=== PATIENT | female | born 1970 | race Caucasian/White ===

== ENCOUNTER 2021-06-23 08:14 | Emergency (ER) | payer BC ==
[~2021-06-23] VITALS: Ht 167.6 cm; Wt 76.0 kg
[~2021-06-23 08:14] MED LIST: AMOXICILLIN500 MG PO; CYCLOBENZAPR10 MG PO; NAPROSYN500 MG PO; ULTRAM50 MG PO
[2021-06-23 08:41] LABS: HEMATOCRIT 41.4 % (37.0-47.0); HEMOGLOBIN 13.1 g/dl (12.0-16.0); IMMATURE GRANULOCYTES 0.1 % (0.0-5.0); MEAN CELL VOLUME 87.7 fL CALC (80.0-100.0); MEAN CORPUSCULAR HGB 27.8 pG CALC (26.0-32.0); MEAN CORPUSCULAR HGB CONC 31.6 g/dL CAL (32.0-36.0); NEUT# 6.09 thou/uL (2.00-7.15); RED BLOOD COUNT 4.72 mill/uL (4.20-5.60)
[2021-06-23 09:07] LABS: ANION GAP 17 (6-22 (CALC)); BUN 19 mg/dL (7-17); BUN/CREATININE RATIO 26 (12-20 (CALC)); CHLORIDE 108 mmol/l (95-108); CREATININE 0.8 mg/dL (0.5-1.0); GFR > 60 ML/MIN (>=60 (CALC)); GFR FOR AFR.AMER. > 60 ML/MIN (>=60 (CALC)); POTASSIUM 4.2 mmol/l (3.5-5.1); SODIUM 139 mmol/l (137-146)
[2021-06-23 09:08] LABS: CARBON DIOXIDE 18 mmol/l (22-30)
[2021-06-23 10:00] VITALS: BP 119/79
[2021-06-23 10:01] VITALS: BP 119/79
[2021-06-23] MEDS ORDERED: TRAMADOL HYDROC50 M1 PO (10:14)
== END 2021-06-23 10:19 | disposition home or self-care (01) | DRG 313 ==
LOC: ED 08:14
PROVIDERS: Family Medicine
DX: R07.89 Other chest pain (principal); U07.1 COVID-19; K21.9 Gastro-esophageal reflux disease without esophagitis; Z86.718 Personal history of other venous thrombosis and embolism